=== PATIENT | female | born 1970 | race Caucasian/White ===

== ENCOUNTER 2017-01-07 07:01 | Day surgery (SDC) | payer BC, OTHER ==
[2017-01-03 10:39] VITALS: BMI 22.9
[2017-01-07] MEDS ORDERED: PROPOFOL 20 ML ONE ×9 (07:26→10:32)
[2017-01-07] MEDS ORDERED: oxyCODONE HCL 10 MG SUSTAINED ACTING TABLET PO ONE (07:27)
[2017-01-07] MEDS ORDERED: ROCURONIUM BROMIDE 50 MG/5 ML VIAL ONE (07:27)
--- NOTE | 2017-01-07 07:27 | HP ---
History & Physical Update - History History: No Change - Physical Physical: No Change - Assessment Assessment: No Change - Plan Plan: No Change
[2017-01-07] MEDS ORDERED: SUCCINYLCHOLINE CHLORIDE 200 MG/10 ML VIAL ONE (07:28)
[2017-01-07] MEDS ORDERED: ePHEDrine SULFATE 50 MG/1 ML AMPULE ONE (07:32)
[2017-01-07] MEDS ORDERED: PHENYLEPHRINE HCL 10 MG/1 ML SINGLE DOSE VIAL ONE (07:42)
[2017-01-07] MEDS ORDERED: oxyCODONE HCL 10 MG SUSTAINED ACTING TABLET ONE (07:43)
[2017-01-07] MEDS ORDERED: MIDAZOLAM HCL 2 MG/2 ML SINGLE DOSE VIAL ONE (07:49)
[2017-01-07] MEDS ORDERED: THROMBIN (BOVINE) 5,000 UNIT VIAL TP ONE ×2 (08:16→10:04)
[2017-01-07] MEDS ORDERED: LIDOCAINE 1%/EPI 1:100000 (50 ML MULTI DOSE VIAL) INF ONE (09:05)
[2017-01-07] MEDS ORDERED: ONDANSETRON 4 MG/2 ML VIAL ONE (10:13)
[2017-01-07] MEDS ORDERED: DEXAMETHASONE SOD PHOSPHATE 4 MG/1 ML VIAL ONE ×2 (10:13→10:41)
[2017-01-07] MEDS ORDERED: ceFAZolin SODIUM 1 GM VIAL ONE (10:13)
[2017-01-07] MEDS ORDERED: LACTATED RINGERS SOLUTION 1,000 ML IV SCH ×2 (10:30→11:30)
[2017-01-07] MEDS ORDERED: GUM MASTIC/STORAX/MSAL/ALCOHOL 1 DRP DROPSBTL MC ONE (10:45)
[2017-01-07] MEDS ORDERED: ONDANSETRON 4 MG/2 ML VIAL IVPUSH PRN (11:13)
--- NOTE | 2017-01-07 11:19 | OP ---
Operative Note - Note: Operative Date: 01/07/17 Pre-Operative Diagnosis: spinal stenosis Operation: anterior cernival fusion of C5-C6 and C6-C7 Surgeon: Chu Salazar Steam Train Driver: Sherry Herzog Anesthesiologist/LABOR RELATIONS ANALYST: Arlene Steven Anesthesia: General Specimens Removed: cervical disc C5-6 and C6-7 Estimated Blood Loss (mls): 20 Drains & Tubes with Location: JOHN-anterior neck Fluid Volume Replaced (mls): 1,300 Operative Report Dictated: Yes
[2017-01-07] MEDS ORDERED: KETOROLAC TROMETHAMINE 15 MG/ML VIAL IVPUSH PRN (11:20)
[2017-01-07] MEDS ORDERED: oxyCODONE HCL 5 MG TABLET PO PRN (11:20)
[2017-01-07] MEDS ORDERED: ONDANSETRON 4 MG/2 ML VIAL IVPB PRN (11:20)
[2017-01-07] MEDS ORDERED: morphine CARPU-JECT 4 MG/1 ML DISP.SYRIN IVPUSH PRN (11:20)
[2017-01-07] MEDS ORDERED: ACETAMINOPHEN INJECTION 100 ML IVPB ONE (11:21)
[2017-01-07] MEDS ORDERED: ACETAMINOPHEN 1000 MG/100 ML VIAL (NON FORMULARY) IVPB ONE (11:24)
[2017-01-07] MEDS ORDERED: diazePAM 2 MG TABLET PO PRN (11:25)
--- NOTE | 2017-01-07 11:30 | SURG ---
Surgery Dermatological Surgeon Note Dermatological Surgeon: Sherry Herzog PA-C Date of Service: 01/07/17 Diagnosis: cervical stenosis Procedure: antierior cervical fusion of C5-C6 and C6-C7 I was present for the entirety of the operative procedure. For further detail, please refer to operative report. Visit type - Case Type Case Type: Scheduled Admission - Emergency Emergency Visit: No - New patient This patient is new to me today: Yes Date on this admission: 01/07/17 - Critical Care Critical Care patient: No
[2017-01-07] MEDS: oxyCODONE HCL 5 MG TABLET PO PRN ×2 (15:33→20:12)
[2017-01-07] MEDS: CEFAZOLIN 1 GM/D5W 50 ML IVPB SCH (16:29)
[2017-01-07] MEDS ORDERED: ACETAMINOPHEN 325 MG TABLET (FP) PO PRN (19:00)
[2017-01-08] MEDS: CEFAZOLIN 1 GM/D5W 50 ML IVPB SCH (00:42)
[2017-01-08] MEDS: oxyCODONE HCL 5 MG TABLET PO PRN ×2 (02:30→10:11)
[2017-01-08 06:52] VITALS: BP 114/57; PULSE 69; TEMP 98.6
[2017-01-08] MEDS ORDERED: LEVOTHYROXINE NA 150 MCG TABLET PO SCH (07:00)
--- NOTE | 2017-01-08 09:20 | DS ---
Physical Exam: SUBJECTIVE: Patient seen and examined and states that the numbness in her right two lateral fingers has improved, pain well managed overnight. oob and ambulating. No difficulty swallowing. OBJECTIVE: Vital Signs Temperature 98.6 F 01/08/17 06:50 Pulse Rate 69 01/08/17 06:50 Respiratory Rate 18 01/08/17 08:03 Blood Pressure 114/57 01/08/17 06:50 O2 Sat by Pulse Oximetry (%) 98 01/07/17 13:39 JOHN-20 ml serous outpt PHYSICAL EXAM GENERAL: The patient is awake, alert, and fully oriented, in no acute distress. HEAD: Normal with no signs of trauma. NECK: Trachea midline, full range of motion, supple. Drain removed without any difficulty and no bleeding noted. Incision c/d/i with steristrips. No masses or eechymosis. LUNGS: Breath sounds equal, clear to auscultation bilaterally, no wheezes, no crackles, no accessory muscle use. HEART: Regular rate and rhythm, S1, S2 without murmur, rub or gallop. LOWER EXTREMITIES: No edema, no calf tenderness noted. Scd in place and working. NEUROLOGICAL: Director Of Patient Care strength equal b/l, shrugs shoulder equal b/l. PSYCH: Normal mood, normal affect. SKIN: Warm, dry, normal turgor, no rashes or lesions noted. LABS Serum , Qual Negative 01/07/17 07:00 HOSPITAL COURSE: Date of Admission:01/07/17 Date of Discharge: 01/08/17 The patient was admitted to the Med-Surg Unit after an elective repair of their cervical stenosis. Now, s/p anterior cervical fusion of C5-C6, C6-C7. The day of surgery, the patient ambulated the hallways with assistance. Narcotic and non-narcotic pain management control was achieved with an oral and IV approach. POD #1, the surgical drain was removed fully intact and without incident. An xray was obtained and confirmed hardware placement at C5-6 and C6-7, no fractures or dislocations. [place]-operative IV ABX were administered. DVT prophylaxis was achieved with SCDs and early ambulation. The patient ambulated with Physical Therapy and no services were recommended upon discharge. Narcotic scripts and or muscle relaxants were checked with [employer] CHIEF COMMUNICATIONS OFFICER prior to escibe. The discharge instructions and an oral pain management plan were reviewed with the patient. All questions answered. Above plan discussed with Dr. Salazar and agreed. Minutes to complete discharge: 20 <Sherry Herzog - Last Filed: 01/23/17 14:05> Physical Exam: SUBJECTIVE: Patient seen and examined OBJECTIVE: Vital Signs Temperature 98.6 F 01/08/17 06:50 Pulse Rate 69 01/08/17 06:50 Respiratory Rate 18 01/08/17 08:03 Blood Pressure 114/57 01/08/17 06:50 O2 Sat by Pulse Oximetry (%) 98 01/07/17 13:39 PHYSICAL EXAM GENERAL: The patient is awake, alert, and fully oriented, in no acute distress. HEAD: Normal with no signs of trauma. EYES: PERRL, extraocular movements intact, sclera anicteric, conjunctiva clear. ENT: Ears normal, nares patent, oropharynx clear without exudates, moist mucous membranes. NECK: Trachea midline, full range of motion, supple. LUNGS: Breath sounds equal, clear to auscultation bilaterally, no wheezes, no crackles, no accessory muscle use. HEART: Regular rate and rhythm, S1, S2 without murmur, rub or gallop. ABDOMEN: Soft, nontender, nondistended, normoactive bowel sounds, no guarding, no rebound, no hepatosplenomegaly, no masses. EXTREMITIES: 2+ pulses, warm, well-perfused, no edema. NEUROLOGICAL: Cranial nerves II through XII grossly intact. Normal speech, gait not observed. PSYCH: Normal mood, normal affect. SKIN: Warm, dry, normal turgor, no rashes or lesions noted. LABS CBC,CMP Serum , Qual Negative 01/07/17 07:00 HOSPITAL COURSE: Date of Admission:01/07/17 Date of Discharge: 01/24/17 The patient was admitted to the Med-Surg Unit after an elective repair of their ACDF. The day of surgery, the patient ambulated the hallways with assistance. Narcotic and non-narcotic pain management control was achieved with an oral and IV approach. POD #1, the surgical drain was removed fully intact and without incident. An xray was obtained and confirmed hardware placement at C5-6, no fractures or dislocations. [place]-operative IV ABX were administered. DVT prophylaxis was achieved with SCDs and early ambulation. The patient ambulated with Physical Therapy and no services were recommended upon discharge. Narcotic scripts and or muscle relaxants were checked with [place] CHIEF COMMUNICATIONS OFFICER prior to escibe. The discharge instructions and an oral pain management plan were reviewed with the patient. All questions answered. Above plan discussed with Dr. Salazar and agreed. Patient seen and examined Agree with above D/C Planning <Chu Salazar - Last Filed: 01/24/17 11:55> Visit type - Case Type Case Type: Scheduled Admission - Emergency Emergency Visit: No - New patient This patient is new to me today: Yes Date on this admission: 01/23/17 - Critical Care Critical Care patient: No Total Critical Care Time: 20 <Sherry Herzog - Last Filed: 01/23/17 14:05>
--- NOTE | 2017-01-08 09:47 | PN ---
Progress Note (short form) - Note Progress Note: 46F POD1 s/p ACDF under [facility] doing well. Pt states her pain is well controlled , AVSS, reports no anesthetic complications. Sensory and motor function is at baseline.
--- NOTE | 2017-01-08 11:43 | PATH ---
Surgical Pathology Report Patient Name: KAROL ELLIS [facility]. Rec. #: [id number] /Age/Gender: 1970 (Age: 46) / F Account: [id number] [facility] Taken: 01/07/2017 Received: 01/07/2017 Reported: 01/08/2017 Physicians: Chu Salazar M.D. Specimen(s) Received C5-6, C6-7 DISC Clinical History Myelopathy cervical spine Final Diagnosis INTERVERTEBRAL DISC, C5-6 AND C6-7, PARTIAL EXCISION: PORTIONS OF INTERVERTEBRAL DISC, WITH ADMIXED FRAGMENTS OF BONE. Electronically Signed Juan Diego Ramos M.D. Gross Description Received in formalin labeled "C5-6, C6-7 disc," is a 2.5 x 1.9 x 0.3 cm aggregate of hurd fragments of fibrocartilaginous tissue and possible bone. The specimen is submitted in toto in one cassette, following decalcification. 01/07/201701/07/2017
--- NOTE | 2017-01-09 09:48 | OP ---
DATE OF OPERATION: 01/07/2017 PREOPERATIVE DIAGNOSIS: Cervical stenosis, C5-C6, C6-C7. POSTOPERATIVE DIAGNOSIS: Cervical stenosis, C5-C6, C6-C7. PROCEDURE PERFORMED: 1. Anterior cervical decompression, C5-C6, C6-C7. 2. Anterior cervical fusion C5-C6, C6-C7. 3. Placement of instrumentation, C5-C6, C6-C7. SURGEON: Chu Salazar MD VP PRODUCTION: MARJ Aponte ESTIMATED BLOOD LOSS: 50 mL. IV FLUIDS: Per Anesthesia. COMPLICATIONS: None. ANESTHESIA: General. DISPOSITION: Patient brought to the PACU in stable condition. INDICATIONS FOR SURGERY: The patient is a 46-year-old female who has been suffering from significant pain from her neck down her arms. She also noticed significant weakness in her hands. A diagnosis of cervical myelopathy was discussed with the patient including the stepwise deterioration of function. Risks, benefits, and alternatives were discussed with the patient, and the patient consented to surgery. OPERATIVE NOTE: Patient was brought into the operating room by the anesthesia staff. After appropriate patient identification was performed, general anesthesia was administered. Appropriate anesthetic lines were placed. SCDs were placed on the patient. Neuromonitoring leads were attached. Her neck was distended to the point that she could tolerate in the preoperative holding area. A needle was taped onto her neck to deborah off the C5-C6 level, and x-rays taken to confirm this was correct. Needle was removed, and 10 mL of lidocaine with epinephrine was injected into her neck at this time. Her neck was prepped and draped in the usual sterile manner. At this point, a time-out was completed. A 2-inch incision was made in the left side of her neck. Dissection was carried down to the platysma. The platysma was cut in line with the skin incision. Next, internally rotated sternocleidomastoid as well as strap muscles was developed. Internally rotated, the carotid sheath as well as tracheal esophagus was developed. Peanuts were used to elevate off the prevertebral fascia. A needle was placed into the C5-C6 disc, and x-ray was to confirm this was correct. The needle was removed. .The longus colli muscles were elevated off, and retractor blades were placed in. A microscope was brought in. At this point, a [place] pin was placed into the body of C5 and placed into the body of C7. A knife was used to incise the disc and distraction was applied. At this point, a Gee was used to elevate the disc off of the end-plate. Using a series of pituitaries, Kerrrisons, and curettes, a discectomy was completed. The PLL was identified. It was also removed at this time. A complete decompression was performed. The end-plates were decorticated at this time. Cages filled with bone graft were placed into the disc spaces of C5-C6 and C6-C7. Screws were placed in, and [place] pins were removed. AP and lateral x-rays confirmed the instrumentation to be in good position. Final tightening was performed. A JOHN drain was placed. The platysma was closed with a 2-0 Vicryl suture. Skin was closed with a 3-0 Monocryl suture. Dermabond was applied. Steri-Strips were applied. Sterile dressings were applied. Patient was placed supine on the OR bed, extubated in the OR, and brought to the PACU in stable condition. Ab [id number] MTDD
== END 2017-01-08 13:05 | disposition home or self-care (01) ==
LOC: FASU 07:01 → FM/S 12:12 → FASU 01-08 13:05
PROVIDERS: ATTEND Orthopaedic Surgery Orthopaedic Surgery of the Spine
PROC: 0RG10A0 Fusion of Cervical Vertebral Joint with Interbody Fusion Device, Anterior Approach, Anterior Column, Open Approach (ICD-10-PCS; 2017-01-07)
PROC: 0RG10K0 Fusion of Cervical Vertebral Joint with Nonautologous Tissue Substitute, Anterior Approach, Anterior Column, Open Approach (ICD-10-PCS; 2017-01-07)
PROC: 0RB30ZZ Excision of Cervical Vertebral Disc, Open Approach (ICD-10-PCS; principal; 2017-01-07 09:16)
DX: M48.02 Spinal stenosis, cervical region (principal)
CPT/HCPCS: 72050-TC; 76001-TC; 84703; 88304-TC; 88311-TC; 94010; 94760; 97116-GP; 97162-GP